=== PATIENT | female | born 1975 | race African-American/Black ===

== ENCOUNTER → 2018-11-12 | Day surgery (SDC) | payer MEDICARE, MEDICAID ==
[~2018-11-12] VITALS: Ht 167.6 cm; Wt 78.5 kg
[~2018-11-12] MED LIST: ALBU18HF2 IH; BACITRACIN 15GM TUBE TOP ONE; BACITRACIN 50,000 UNITS/VIAL ONE; BUPIVACAINE HCL/PF 0.5% (5MG/ML) 10ML ONE; CEFAZOLIN SODIUM 1000MG/VIAL ONE; FENTANYL CITRATE/PF 50MCG/ML 2ML VIAL IV PRN; FENTANYL CITRATE/PF 50MCG/ML 2ML VIAL ONE; GENTAMICIN SULF 40MG/ML 2ML VIAL ONE; HYDR200T80 PO; HYDROMORPHONE HCL/PF 2MG/ML CPJ IV PRN; IBUP-2029 PO; KETOROLAC 30MG/ML VIAL ONE; LACTATED RINGERS 1,000 ML IV SCH; LIDOCAINE HCL 1% 20ML VIAL (Pyxis) INJ ONE; MEPERIDINE HCL/PF 25MG/ML CPJ IV PRN; METOCLOPRAMIDE HCL 10MG/2ML VIAL ONE; MIDAZOLAM HCL 2 MG/2 ML VIAL ONE; MORPHINE SULFATE 4 MG/ML CPJ (NOT FOR IM USE) IV PRN; ONDANSETRON HCL 4MG/2ML INJ IV PRN; ONDANSETRON HCL 4MG/2ML INJ ONE; PROPOFOL 200MG/20ML VIAL IV ONE; SUCCINYLCHOLINE CHLORIDE 200MG/10ML IV ONE; VANCOMYCIN HCL 500 MG/VIAL ONE
== END | disposition home or self-care (01) ==
LOC: OR 12:02
PROVIDERS: ATTEND Podiatrist Foot & Ankle Surgery
DX: D23.72 Other benign neoplasm of skin of left lower limb, including hip (principal); D23.71 Other benign neoplasm of skin of right lower limb, including hip; L57.0 Actinic keratosis; J45.909 Unspecified asthma, uncomplicated; Z90.710 Acquired absence of both cervix and uterus; Z88.0 Allergy status to penicillin
CPT/HCPCS: 11422; 88305; J0330; J0690; J1885; J2250; J2405; J2704; J2765; J3010; J3490; J1580; J3370